=== PATIENT | female | born 1935 | race Caucasian/White ===

== ENCOUNTER 2021-06-01 00:45 | Emergency (ER) | payer MEDICARE ==
[~2021-06-01] VITALS: Ht 160 cm; Wt 85.3 kg
[2021-06-01 00:50] VITALS: BP_SYST 200
--- NOTE | 2021-06-01 02:15 | NUR ---
Patient left without being seen.
== END 2021-06-01 02:15 | disposition left against medical advice (07) ==
LOC: SED 00:45
DX: M54.9 Dorsalgia, unspecified (principal); Z53.21 Procedure and treatment not carried out due to patient leaving prior to being seen by health care provider